=== PATIENT | female | born 1965 | race Caucasian/White ===

== ENCOUNTER 2020-05-11 20:34 | Emergency (ER) | payer BC, OTHER ==
[~2020-05-11] VITALS: Ht 167.6 cm; Wt 91.0 kg
[2020-05-11 21:07] LABS: BASO # 0.1 x10^3/uL (0.0-0.2); BASO % 1 % (0-3); EOS # 0.1 x10^3/uL (0.0-0.7); EOS % 2 % (0-3); HEMATOCRIT 38.5 % (36.0-47.0); HEMOGLOBIN 13.3 g/dL (12.0-15.5); LYMPH # 2.8 x10^3/uL (1.0-4.8); LYMPH % 39 % (24-48); MEAN CORPUSCULAR HEMOGLOBIN 29 pg (25-35); MEAN CORPUSCULAR HGB CONC 35 g/dL (31-37); MEAN CORPUSCULAR VOLUME 84 fL (79-100); MONO # 0.5 x10^3/uL (0.0-1.1); MONO % 7 % (0-9); NEUT # 3.7 x10^3/uL (1.8-7.7); NEUT % 52 % (31-73); PLATELET COUNT 200 x10^3/uL (140-400); RED BLOOD COUNT 4.57 x10^6/uL (3.50-5.40); RED CELL DISTRIBUTION WIDTH 13.3 % (11.5-14.5); WHITE BLOOD COUNT 7.1 x10^3/uL (4.0-11.0)
[2020-05-11 21:14] LABS: PROTHROMBIN TIME PATIENT 12.1 SEC (11.7-14.0)
[2020-05-11 21:18] LABS: CALCIUM 8.6 mg/dL (8.5-10.1); GFR 57.4; POTASSIUM 3.3 mmol/L (3.5-5.1)
[2020-05-11 21:20] LABS: BILIRUBIN,URINE NEGATIVE (NEG); CLARITY,URINE CLEAR; COLOR,URINE YELLOW; NITRITE,URINE NEGATIVE (NEG); PROTEIN,URINE NEGATIVE (NEG-TRACE); UROBILINOGEN,URINE 0.2 mg/dL (0.2 mg/dL)
[2020-05-11 21:23] LABS: ALBUMIN 3.7 g/dL (3.4-5.0); ALBUMIN/GLOBULIN RATIO 1.1 (1.0-1.7); TOTAL BILIRUBIN 0.4 mg/dL (0.2-1.0); TOTAL PROTEIN 7.1 g/dL (6.4-8.2)
[2020-05-11 21:26] LABS: BARBITURATES NEG (NEG); BENZODIAZEPINES NEG (NEG); CANNABINOIDS NEG (NEG); COCAINE NEG (NEG); METHADONE NEG (NEG); OPIATES NEG (NEG); PHENCYCLIDINE NEG (NEG)
[2020-05-11 21:27] LABS: BACTERIA,URINE 0 /HPF (0-FEW); RBC,URINE OCC /HPF (0-2); WBC,URINE OCC /HPF (0-4)
[2020-05-11 21:28] LABS: AMPHETAMINE/METHAMPHETAMINE NEG (NEG)
--- NOTE | 2020-05-11 21:34 | PHYS DOC ---
Past Medical History Past Medical History: No Pertinent History (JOSE DAVID EDWARDS FBI INVESTIGATOR) Past Surgical History: , Other Additional Past Surgical Histo: hernia (JOSE DAVID EDWARDS FBI INVESTIGATOR) Smoking Status: Never Smoker Alcohol Use: None Drug Use: None (JOSE DAVID EDWARDS APRN) General Adult EDM: Chief Complaint: CHEST PAIN HPI: HPI: Patient is a 54 year old female who presents with left-sided sharp chest pain that comes and goes since 1930 tonight. She did take a full aspirin. Patient states that this pain will come and go over the last month but has not stayed this long before. She states when she bends over the pain gets worse. She states when she is up and moving the pain gets worse. She states that the pain will sometimes be in the left neck and go straight down into the chest also. She states tonight she got short of breath when the pain started. Patient denies abdominal pain, nausea, vomiting, dizziness, headache, numbness or tingling, focal weakness, diarrhea, constipation, vision changes. (JOSE DAVID EDWARDS FBI INVESTIGATOR) Review of Systems: Review of Systems: Constitutional: Denies fever or chills. [] Eyes: Denies change in visual acuity. [] HENT: Denies nasal congestion or sore throat. [] Respiratory: Denies cough. +shortness of breath. [] Cardiovascular: + Left chest pain or denies edema. [] GI: Denies abdominal pain, nausea, vomiting, bloody stools or diarrhea. [] : Denies dysuria. [] Musculoskeletal: Denies back pain or joint pain. [] Integument: Denies rash. [] Neurologic: Denies headache, focal weakness or sensory changes. [] Endocrine: Denies polyuria or polydipsia. [] Lymphatic: Denies swollen glands. [] Psychiatric: Denies depression or anxiety. [] (JOSE DAVID EDWARDS [employer] INVESTIGATOR) Heart Score: C/O Chest Pain: Yes HEART Score for Chest Pain: HEART Score for Chest Pain Response (Comments) Value History Slighlty/Non-Suspicious 0 ECG Normal 0 Age >45 - < 65 1 Risk Factors 1 or 2 Risk Factors 1 Troponin < Normal Limit 0 Total 2 Risk Factors: Risk Factors: DM, Current or recent (<one month) smoker, HTN, HLP, family history of CAD, obesity. Risk Scores: Score 0 - 3: 2.5% MACE over next 6 weeks - Discharge Home Score 4 - 6: 20.3% MACE over next 6 weeks - Admit for Clinical Observation Score 7 - 10: 72.7% MACE over next 6 weeks - Early Invasive Strategies (JOSE DAVID EDWARDS APRN) C/O Chest Pain: Yes HEART Score for Chest Pain: HEART Score for Chest Pain Response (Comments) Value History Slighlty/Non-Suspicious 0 ECG Normal 0 Age >45 - < 65 1 Risk Factors No Risk Factors 0 Troponin < Normal Limit 0 Total 1 (MARTHA JURADO DO) Allergies: Allergies: Allergies Coded Allergies Type Severity Reaction Last Updated Verified Penicillins Allergy Unknown 06/14/14 No (JOSE DAVID EDWARDS APRN) Physical Exam: PE: Constitutional: Well developed, well nourished, no acute distress, non-toxic appearance. [] HENT: Normocephalic, atraumatic, bilateral external ears normal, oropharynx moist, no oral exudates, nose normal. [] Eyes: PERRLA, EOMI, conjunctiva normal, no discharge. [] Neck: Normal range of motion, no tenderness, supple, no stridor. [] Cardiovascular:Heart rate regular rhythm, no murmur. Left-sided chest pain reproduced with palpation over the area. [] Lungs & Thorax: Bilateral breath sounds clear to auscultation [] Abdomen: Bowel sounds normal, soft, no tenderness, no masses, no pulsatile masses. [] Skin: Warm, dry, no erythema, no rash. [] Back: No tenderness, no CVA tenderness. [] Extremities: No tenderness, no cyanosis, no clubbing, ROM intact, no edema. [] Neurologic: Alert and oriented X 3, normal motor function, normal sensory function, no focal deficits noted. [] Psychologic: Affect normal, judgement normal, mood normal. [] (JOSE DAVID EDWARDS APRN) Current Patient Data: Labs: Laboratory Tests Test 05/11/20 20:55 05/11/20 21:09 White Blood Count 7.1 x10^3/uL (4.0-11.0) Red Blood Count 4.57 x10^6/uL (3.50-5.40) Hemoglobin 13.3 g/dL (12.0-15.5) Hematocrit 38.5 % (36.0-47.0) Mean Corpuscular Volume 84 fL (79-100) Mean Corpuscular Hemoglobin 29 pg (25-35) Mean Corpuscular Hemoglobin Concent 35 g/dL (31-37) Red Cell Distribution Width 13.3 % (11.5-14.5) Platelet Count 200 x10^3/uL (140-400) Neutrophils (%) (Auto) 52 % (31-73) Lymphocytes (%) (Auto) 39 % (24-48) Monocytes (%) (Auto) 7 % (0-9) Eosinophils (%) (Auto) 2 % (0-3) Basophils (%) (Auto) 1 % (0-3) Neutrophils # (Auto) 3.7 x10^3/uL (1.8-7.7) Lymphocytes # (Auto) 2.8 x10^3/uL (1.0-4.8) Monocytes # (Auto) 0.5 x10^3/uL (0.0-1.1) Eosinophils # (Auto) 0.1 x10^3/uL (0.0-0.7) Basophils # (Auto) 0.1 x10^3/uL (0.0-0.2) Prothrombin Time 12.1 SEC (11.7-14.0) Prothrombin Time INR 0.9 (0.8-1.1) Sodium Level 137 mmol/L (136-145) Potassium Level 3.3 mmol/L (3.5-5.1) L Chloride Level 101 mmol/L (98-107) Carbon Dioxide Level 26 mmol/L (21-32) Anion Gap 10 (6-14) Blood Urea Nitrogen 13 mg/dL (7-20) Creatinine 1.0 mg/dL (0.6-1.0) Estimated GFR (Cockcroft-Gault) 57.4 BUN/Creatinine Ratio 13 (6-20) Glucose Level 141 mg/dL (70-99) H Calcium Level 8.6 mg/dL (8.5-10.1) Total Bilirubin 0.4 mg/dL (0.2-1.0) Aspartate Amino Transferase (AST) 18 U/L (15-37) Alanine Aminotransferase (ALT) 45 U/L (14-59) Alkaline Phosphatase 56 U/L (46-116) Troponin I Quantitative < 0.017 ng/mL (0.000-0.055) QF-Wox-Q-Type Natriuretic Peptide 19 pg/mL (0-124) Total Protein 7.1 g/dL (6.4-8.2) Albumin 3.7 g/dL (3.4-5.0) Albumin/Globulin Ratio 1.1 (1.0-1.7) Lipase 84 U/L (73-393) Urine Opiates Screen Neg (NEG) Urine Methadone Screen Neg (NEG) Urine Barbiturates Neg (NEG) Urine Phencyclidine Screen Neg (NEG) Urine Amphetamine/Methamphetamine Neg (NEG) Urine Benzodiazepines Screen Neg (NEG) Urine Cocaine Screen Neg (NEG) Urine Cannabinoids Screen Neg (NEG) Urine Ethyl Alcohol Neg (NEG) Laboratory Tests 05/11/20 20:55 Laboratory Tests 05/11/20 20:55 Vital Signs: Vital Signs Date Time Temp Pulse Resp B/P (MAP) Pulse Ox O2 Delivery O2 Flow Rate FiO2 05/11/20 20:45 99.9 74 30 142/67 (92) 97 Room Air 99.9 (JOSE DAVID EDWARDS APRN) EKG: EK and read by Dr. Jurado as sinus rhythm and no STEMI [address] Jurado as sinus rhythm and no STEMI (JOSE DAVID EDWARDS APRN) Radiology/Procedures: Radiology/Procedures: [] Impression: [facility] [address] [place] [address] IMAGING REPORT Signed PATIENT: CARLOS LUJAN ACCOUNT: [id number] : 1965 LOCATION: ER AGE: 54 SEX: F EXAM STATUS: REG ER ORD. PHYSICIAN: JOSE DAVID EDWARDS APRN REASON: chest pain PROCEDURE: PORTABLE CHEST 1V Exam: Chest one view INDICATION: Chest pain TECHNIQUE: Frontal view of the chest Comparisons: None FINDINGS: The cardiomediastinal silhouette and pulmonary vessels are within normal limits. The lung and pleural spaces are clear. IMPRESSION: No acute cardiopulmonary process. Electronically signed by: Anil Rees MD (05/11/2020 10:36 PM) [facility] DICTATED and SIGNED BY: ANIL REES MD DATE: 05/11/20 [id number] (JOSE DAVID EDWARDS APRN) Course & Med Decision Making: Course & Med Decision Making Pertinent Labs and Imaging studies reviewed. (See chart for details) See HPI. Alert and oriented x4. Ambulatory with a steady gait. Chest pain is reproducible when I palpate over the left chest and push on it. Abdomen soft and nontender. Skin pink warm and dry. PERRLA. Patient is Somali-speaking and daughters in the room interpreting for the patient. Patient takes no medications daily and denies any other past medical history. 2350: Patient reported off to Dr Jurado [] (JOSE DAVID EDWARDS APRN) Course & Med Decision Making Was evaluated for chief complaint. Work-up consisted of laboratory analysis radiologic imaging and EKG. Results reviewed and discussed with patient and daughter. EKG without acute ischemic changes troponin negative x2. Reevaluation at 0034 hours patient states pain is completely resolved. Patient will be discharged home with instructions to follow-up with primary care physician. Patient advised to return to the ER if symptoms return persist or any new concerning symptoms arise. (MARTHA JURADO DO) Dragon Disclaimer: Dragon Disclaimer: This electronic medical record was generated, in whole or in part, using a voice recognition dictation system. (JOSE DAVID EDWARDS APRN) Departure Departure Impression: Primary Impression: Chest pain Qualified Codes: R07.9 - Chest pain, unspecified Disposition: 01 DC HOME SELF CARE/HOMELESS Condition: STABLE Referrals: KHOA DEWEY MD (PCP) Patient Instructions: Chest Pain (Nonspecific) JOSE DAVID EDWARDS APRN May 11, 2020 21:34 MARTHA JURADO DO May 12, 2020 00:35
--- NOTE | 2020-05-11 21:55 | EKG ---
[facility] [address] [place] [address] Test Date: 2020-05-11 Test Time: 20:40:18 Pat Name: CARLOS LUJAN Department: Room: Gender: F [employer]: : 1965 Requested By: JOSE DAVID DEWARDS Order Number: [id number] Reading MD: Measurements Intervals [place] Rate: 84 P: 37 TN: 138 QRS: 23 QRSD: 88 T: 77 QT: 362 QTc: 431 Interpretive Statements SINUS RHYTHM T ABNORMALITY IN HIGH LATERAL LEADS ABNORMAL ECG RI6.02 No previous ECG available for comparison
[2020-05-11] MEDS ORDERED: fentaNYL PF VIAL 100 MCG/2 ML VIAL ONE (22:14)
[2020-05-11] MEDS ORDERED: fentaNYL PF VIAL 100 MCG/2 ML VIAL IVP ONE (22:30)
[2020-05-11] MEDS ORDERED: POTASSIUM CHLORIDE 20 MEQ TABLET.ER. PO ONE (22:30)
--- NOTE | 2020-05-11 22:35 | EKG ---
[facility] [address] [place] [address] Test Date: 2020-05-11 Test Time: 21:29:54 Pat Name: CARLOS LUJAN Department: Room: Gender: F Beef [employer]: : 1965 Requested By: JOSE DAVID EDWARDS Order Number: [id number] Reading MD: Measurements Intervals [place] Rate: 78 P: 41 ID: [id number] QRS: 13 QRSD: 88 T: 75 QT: 376 QTc: 432 Interpretive Statements SINUS RHYTHM INCOMPLETE RIGHT BUNDLE BRANCH BLOCK T ABNORMALITY IN HIGH LATERAL LEADS ABNORMAL ECG RI6.02 Compared to ECG 05/11/2020 20:40:18 Incomplete right bundle-branch block now present T-wave abnormality still present
--- NOTE | 2020-05-11 22:38 | RAD ---
Exam: Chest one view INDICATION: Chest pain TECHNIQUE: Frontal view of the chest Comparisons: None FINDINGS: The cardiomediastinal silhouette and pulmonary vessels are within normal limits. The lung and pleural spaces are clear. IMPRESSION: No acute cardiopulmonary process. Electronically signed by: Anil Sales MD (05/11/2020 10:36 PM) [facility]
[2020-05-11] MEDS ORDERED: ONDANSETRON PF 4 MG/2 ML VIAL. IVP ONE ×2 (23:00→23:30)
[2020-05-12 00:30] VITALS: BP 133/63
== END 2020-05-12 00:45 | disposition home or self-care (01) ==
LOC: ER 20:34
DX: R07.89 Other chest pain (principal); R06.02 Shortness of breath; Z98.890 Other specified postprocedural states
CPT/HCPCS: 36415; 71045; 80053; 80307; 81001; 83690; 83880; 84484; 85025; 85379; 85610; 87086; 93005; 96374; 96375; 99285; J2405; J3010